=== PATIENT | female | born 1970 | race Caucasian/White ===

== ENCOUNTER 2019-06-17 14:41 | Inpatient (IN) ==
[2019-06-17] MEDS ORDERED: ONDANSETRON 4 MG/2 ML VIAL IV STA (15:17)
[2019-06-17] MEDS ORDERED: AZITHROMYCIN INJ 500 MG in SODIUM CHLORIDE 0.9% 250 ML IV STA (15:17)
[2019-06-17] MEDS ORDERED: methylPREDNISolone SOD SUC 125 MG/2 ML VIAL IV STA (15:17)
[2019-06-17 16:29] LABS: Basophils % 0.2 % (0.0-0.8); Hematocrit 44.7 VOL% (35.7-47.0); Hemoglobin 14.5 GM/DL (12.0-16.0); Immature Granulocytes % 0.5 %; Immature Granulocytes Absolute 0.02 #; Lymphocytes # 0.7 10*3/uL (1.4-4.0); Lymphocytes % 16.9 % (21.3-54.2); Mean Corpuscular HGB Conc 32.4 GM/DL (32-36); Mean Platelet Volume 12.4 FL (9.6-12.0); Monocytes % 9.6 % (1.7-12.7); Neutrophils % 72.8 % (38.7-73.9); Platelet Count 214 T/CUMM (130-400); Red Blood Count 5.26 MC/CUMM (3.8-5.5); Red Cell Distribution Width 12.9 % (9.3-17.3); White Blood Count 4.1 T/CUMM (4-12)
[2019-06-17 16:39] LABS: INR 1.1; PT Patient Result 11.8 SECS (9.8-11.9); Partial Thromboplastin Time 29.1 SECS (23.9-33.8)
[2019-06-17 16:49] LABS: Apearance,Urine Slightly Hazy (Clear); Bacteria,Urine Occasional /HPF (Few); Bilirubin,Urine Negative (Negative); Blood, Urine Negative (Negative); Glucose,Urine (UA) Negative (Negative); Hyaline Casts,Urine 58 /LPF (0-3); Ketones,Urine 80 mg/dL (Negative); Mucus,Urine Many /LPF (Occasional); Nitrite,Urine Negative (Negative); Protein,Urine 100 MG/DL; Squamous Epithelial Cell,Urine Occasional /HPF (0-10); Urine Color Amber (Yellow); Urine Specific Gravity 1.024 (1.001-1.035); Urine Urobilinogen < 2.0 EU/DL (0.2-1.0)
[2019-06-17 16:52] LABS: Barbiturates Screen,Urine Negative (Negative); Benzodiazepines Screen,Urine Negative (Negative); Cannabinoid Screen,Urine Negative (Negative); Opiate Screen,Urine Positive (Negative); Phencyclidine Screen,Urine Negative (Negative)
[2019-06-17 16:53] LABS: Alanine Aminotransferase 45 U/L (13-56); Albumin 3.1 G/DL (3.4-5.0); Alkaline Phosphatase 71 U/L (45-117); Aspartate Amino Transferase 49 U/L (0-37); Blood Urea Nitrogen 14 MG/DL (7-18); Calcium 9.5 MG/DL (8.5-10.1); Estimated Glom Filtration Rate 124 ML/MIN; Ferritin 396.7 ng/ml (8-252); Glucose 160 MG/DL (74-106); Osmolality,Calculated 265.7 MOS/KG (273-304); Total Protein 8.2 G/DL (6.4-8.3); Troponin I < 0.015 NG/ML (0.00-0.045)
[2019-06-17] MEDS ORDERED: SODIUM CHLORIDE 0.9% 1,000 ML IV STA (17:15)
[2019-06-17 17:39] LABS: Lymphocytes 3 % (20-55); Segmented Neutrophils 92 % (50-85); Total Cells Counted 100
[2019-06-17 17:40] LABS: Platelet Estimate Adequate
[2019-06-17] MEDS ORDERED: GLUCAGON 1 MG VIAL IM PRN (18:16)
[2019-06-17] MEDS ORDERED: DEXTROSE 50% 25 GM/50 ML VIAL IV PRN (18:16)
[2019-06-17] MEDS ORDERED: ZALEPLON 5 MG CAPSULE PO PRN (18:16)
[2019-06-17] MEDS ORDERED: DEXTROSE 10% 250 ML BAG IV PRN (18:16)
[2019-06-17] MEDS ORDERED: cefTRIAXone 1,000 MG VIAL ONE (20:13)
[2019-06-17] MEDS ORDERED: SODIUM CHLORIDE 0.9% 100 ML IV ONE (20:14)
[2019-06-17] MEDS: ACETAMINOPHEN 325 MG TABLET PO PRN (20:30)
[2019-06-17] MEDS: POTASSIUM CHLORIDE 10 MEQ TABLET PO SCH (20:30)
[2019-06-17] MEDS: FLUoxetine 20 MG CAPSULE PO SCH (23:15)
[2019-06-17] MEDS: PREGABALIN 75 MG CAPSULE PO SCH (23:15)
[2019-06-17] MEDS: INSULIN REGULAR 100 UNIT/ML SUBCUT SCH (23:15)
[2019-06-17] MEDS: ENOXAPARIN 40 MG/0.4 ML SYRINGE SUBCUT SCH (23:15)
[2019-06-17] MEDS: oxyCODONE ER 10 MG TABLET PO SCH (23:55)
[2019-06-18 06:48] LABS: Hematocrit 42.9 VOL% (35.7-47.0); Hemoglobin 13.6 GM/DL (12.0-16.0); Lymphocytes # 0.5 10*3/uL (1.4-4.0); Lymphocytes % 35.1 % (21.3-54.2); Mean Corpuscular HGB Conc 31.7 GM/DL (32-36); Monocytes % 5.8 % (1.7-12.7); Neutrophils % 59.1 % (38.7-73.9); Platelet Count 202 T/CUMM (130-400); Red Blood Count 4.99 MC/CUMM (3.8-5.5); Red Cell Distribution Width 12.9 % (9.3-17.3); White Blood Count 1.5 T/CUMM (4-12)
[2019-06-18 07:09] LABS: Albumin 2.9 G/DL (3.4-5.0); Bilirubin,Total 0.8 MG/DL (0.2-1.0); Calcium 9.2 MG/DL (8.5-10.1); Ferritin 385.2 ng/ml (8-252); Osmolality,Calculated 276.2 MOS/KG (273-304); Total Protein 7.4 G/DL (6.4-8.3)
[2019-06-18 07:11] LABS: Platelet Estimate Adequate
[2019-06-18] MEDS ORDERED: AZITHROMYCIN 250 MG TABLET PO SCH (09:00)
[2019-06-18] MEDS: ALBUTEROL INHALER 8 GM INH SCH ×3 (09:40→18:00)
[2019-06-18] MEDS: DILTIAZEM 60 MG TABLET PO SCH ×3 (09:40→21:40)
[2019-06-18] MEDS: LEFLUNOMIDE 10 MG TABLET PO SCH (09:40)
[2019-06-18] MEDS: oxyCODONE ER 10 MG TABLET PO SCH ×2 (09:40→21:40)
[2019-06-18] MEDS: PREGABALIN 75 MG CAPSULE PO SCH ×2 (09:40→21:40)
[2019-06-18] MEDS: INSULIN REGULAR 100 UNIT/ML SUBCUT SCH ×4 (09:40→21:40)
[2019-06-18] MEDS: POTASSIUM CHLORIDE 10 MEQ TABLET PO SCH ×2 (09:40→21:40)
[2019-06-18] MEDS: ZINC SULFATE 220 MG CAPSULE PO SCH (09:41)
[2019-06-18] MEDS: HYDROXYCHLOROQUINE 200 MG TABLET PO SCH ×2 (09:41→21:40)
[2019-06-18] MEDS: predniSONE 10 MG TABLET PO SCH (09:41)
[2019-06-18] MEDS: METOPROLOL SUCCINATE XL 50 MG TABLET PO SCH (09:41)
[2019-06-18] MEDS: FLUoxetine 20 MG CAPSULE PO SCH (18:00)
[2019-06-18] MEDS ORDERED: LEVOFLOXACIN INJ 750 MG in PREMIX 1 EACH IV SCH (18:30)
[2019-06-18] MEDS ORDERED: cefTRIAXone 1,000 MG in SYRINGE 1 EACH IV SCH (21:00)
[2019-06-18] MEDS: ACETAMINOPHEN 325 MG TABLET PO PRN (21:40)
[2019-06-18] MEDS: ENOXAPARIN 40 MG/0.4 ML SYRINGE SUBCUT SCH (21:40)
[2019-06-19] MEDS: ALBUTEROL INHALER 8 GM INH SCH ×4 (00:15→20:40)
[2019-06-19] MEDS ORDERED: ZINC SULFATE 220 MG CAPSULE PO SCH (09:00)
[2019-06-19] MEDS: oxyCODONE ER 10 MG TABLET PO SCH ×2 (09:38→22:05)
[2019-06-19] MEDS: DILTIAZEM 60 MG TABLET PO SCH ×3 (09:38→22:03)
[2019-06-19] MEDS: PREGABALIN 75 MG CAPSULE PO SCH ×2 (09:38→20:40)
[2019-06-19] MEDS: LEFLUNOMIDE 10 MG TABLET PO SCH (09:38)
[2019-06-19] MEDS: predniSONE 10 MG TABLET PO SCH (09:38)
[2019-06-19] MEDS: HYDROXYCHLOROQUINE 200 MG TABLET PO SCH ×2 (09:38→20:40)
[2019-06-19] MEDS: POTASSIUM CHLORIDE 10 MEQ TABLET PO SCH ×2 (09:38→20:40)
[2019-06-19] MEDS: INSULIN REGULAR 100 UNIT/ML SUBCUT SCH ×4 (10:41→22:03)
[2019-06-19] MEDS: METOPROLOL SUCCINATE XL 50 MG TABLET PO SCH (10:44)
[2019-06-19 11:20] LABS: Basophils % 0.2 % (0.0-0.8); Hematocrit 41.7 VOL% (35.7-47.0); Hemoglobin 13.5 GM/DL (12.0-16.0); Immature Granulocytes % 0.2 %; Immature Granulocytes Absolute 0.01 #; Lymphocytes # 1.2 10*3/uL (1.4-4.0); Lymphocytes % 26.7 % (21.3-54.2); Mean Corpuscular HGB Conc 32.4 GM/DL (32-36); Mean Corpuscular Volume 86.2 FL (87-102); Monocytes % 8.7 % (1.7-12.7); Neutrophils % 64.2 % (38.7-73.9); Platelet Count 268 T/CUMM (130-400); Red Blood Count 4.84 MC/CUMM (3.8-5.5); White Blood Count 4.6 T/CUMM (4-12)
[2019-06-19 11:39] LABS: Calcium 8.9 MG/DL (8.5-10.1); Osmolality,Calculated 290.3 MOS/KG (273-304)
[2019-06-19 11:40] LABS: Band Neutrophils 8 % (0-10); Lymphocytes 27 % (20-55); Myelocytes 1 %; Promyelocytes 1 %; Segmented Neutrophils 53 % (50-85); Total Cells Counted 100
[2019-06-19 11:41] LABS: Atypical Lymphocytes Few; Hypochromasia 1+; Microcytosis 1+; Platelet Estimate Normal
[2019-06-19] MEDS ORDERED: POTASSIUM CHLORIDE 20 MEQ TABLET PO ONE (14:00)
[2019-06-19] MEDS: ACETAMINOPHEN 325 MG TABLET PO PRN (15:10)
[2019-06-19] MEDS: FLUoxetine 20 MG CAPSULE PO SCH (20:40)
[2019-06-19] MEDS: ENOXAPARIN 40 MG/0.4 ML SYRINGE SUBCUT SCH (22:04)
[2019-06-20] MEDS: ALBUTEROL INHALER 8 GM INH SCH ×3 (01:41→13:35)
[2019-06-20 05:30] LABS: Calcium 8.2 MG/DL (8.5-10.1); Osmolality,Calculated 283.5 MOS/KG (273-304)
[2019-06-20] MEDS ORDERED: POTASSIUM CHLORIDE 20 MEQ TABLET PO ONE (09:00)
[2019-06-20] MEDS: INSULIN REGULAR 100 UNIT/ML SUBCUT SCH ×3 (09:14→17:17)
[2019-06-20] MEDS: LEFLUNOMIDE 10 MG TABLET PO SCH (10:09)
[2019-06-20] MEDS: HYDROXYCHLOROQUINE 200 MG TABLET PO SCH (10:09)
[2019-06-20] MEDS: oxyCODONE ER 10 MG TABLET PO SCH (10:09)
[2019-06-20] MEDS: predniSONE 10 MG TABLET PO SCH (10:09)
[2019-06-20] MEDS: ZINC SULFATE 220 MG CAPSULE PO SCH (10:09)
[2019-06-20] MEDS: PREGABALIN 75 MG CAPSULE PO SCH (10:09)
[2019-06-20] MEDS: DILTIAZEM 60 MG TABLET PO SCH ×2 (10:09→17:17)
[2019-06-20] MEDS: METOPROLOL SUCCINATE XL 50 MG TABLET PO SCH (11:01)
[2019-06-20 18:49] VITALS: BP 146/87
== END 2019-06-20 17:50 | disposition home or self-care (01) | DRG 177 ==
LOC: N.ED 14:41 → N.EDINP 18:16 → N.2W 22:35
PROVIDERS: ADMIT Internal Medicine; ATTEND Internal Medicine